=== PATIENT | female | born 1980 | race Two or more races ===

== ENCOUNTER → 2019-02-16 13:38 | Emergency (ER) | payer SELFPAY ==
[~2019-02-16 13:38] MED LIST: Ketorolac INJ* 30 MG/ML 1 ML VIAL IV PUSH ONE; NS 0.9% 1000 ML** 1,000 ML IV ONE
[2019-02-16 16:23] LABS: ABS Eosinophils 0.1 10^3/ul (0-0.6); ABS Monocytes 0.5 10^3/ul (0-0.8); ABS Neutrophils 5.2 10^3/ul (1.5-7.7); Hematocrit 36 % (35-47); Hemoglobin 11.3 g/dL (12.0-16.0); Lymphocyte % 25.8 %; Mean Corpuscular HGB Conc 32 g/dL (31-36); Mean Corpuscular Hemoglobin 26 pg (27-31); Mean Corpuscular Volume 82 fL (80-97); Mean Platelet Volume 8.4 fL (7.4-10.4); Platelet Count 255 10^3/uL (150-450); Red Blood Count 4.34 10^6 /uL (3.70-4.87); Red Cell Distribution Width 17 % (10-15); White Blood Count 7.9 10^3/uL (3.5-10.8)
[2019-02-16 16:26] LABS: INR 1.09 (0.82-1.09)
[2019-02-16 16:42] LABS: HCG Pregnancy < 0.60 mIU/mL
[2019-02-16 17:06] LABS: ALT 94 U/L (7-52); AST 62 U/L (13-39); Albumin 3.9 g/dL (3.2-5.2); Albumin/Globulin Ratio 1.1 (1-3); Alkaline Phosphatase 83 U/L (34-104); Anion Gap 6 mmol/L (2-11); BUN/Creatinine Ratio 14.7 (8-20); Blood Urea Nitrogen 10 mg/dL (6-24); CO2 Carbon Dioxide 25 mmol/L (22-32); Chloride 110 mmol/L (101-111); EGFR African American 117.8 (>60); EGFR Non-African American 97.4 (>60); Globulin 3.4 g/dL (2-4); Glucose 85 mg/dL (70-100); Potassium 3.9 mmol/L (3.5-5.0); Sodium 141 mmol/L (135-145); Total Protein 7.3 g/dL (6.4-8.9)
--- NOTE | 2019-02-16 17:06 | ED ---
GI/ HPI - HPI Summary HPI Summary: 38-year-old female presents with vaginal bleeding for the past month. She states she started her period on the 15th and has continued bleeding since. She states that she has been starting to pass blood clots. She states that she is currently on control that started a month ago. She has history or anemia and is on iron. she admits to crampy abd pain. denies any change of . She denies any weakness or feeling like she will pass out. She admits to constipation. She admits to some nausea. She has been using ibuprofen for pain. She denies any fevers. She states that she rolled her left ankle. She is pain into her left foot and medial aspect of left ankle. No numbness or tingling. cuff setter lockstitch was used for history. - History of Current Complaint Chief Complaint: EDVaginalBleeding Time Seen by Provider: 02/16/19 16:26 Stated Complaint: LOWER ABD PAIN PER PT Pain Intensity: 10 - Allergy/Home Medications Allergies/Adverse Reactions: Allergies Allergy/AdvReac Type Severity Reaction Status Date / Time No Known Allergies Allergy Verified 02/16/19 13:48 Home Medications: Home Medications Bisacodyl EC TAB* [Dulcolax EC TAB*] 5 mg PO DAILY PRN 02/16/19 [History Confirmed 02/16/19] Drospirenone/Estradiol [Angeliq] 1 tab PO DAILY 02/16/19 [History Confirmed 06/27] FLUoxetine CAP* [PROzac CAP*] 10 mg PO DAILY 02/16/19 [History Confirmed ] Ferrous Sulfate TAB* 325 mg PO DAILY 02/16/19 [History Confirmed 02/16/19] Levothyroxine TAB* [Synthroid TAB*] 50 mcg PO DAILY 02/16/19 [History Confirmed 02/16/19] Losartan TAB* [Cozaar TAB*] 50 mg PO DAILY 02/16/19 [History Confirmed 02/16/19] Melatonin 10 mg PO BEDTIME 02/16/19 [History Confirmed 02/16/19] Metformin ER (NF) 500 mg PO DAILY 02/16/19 [History Confirmed 02/16/19] clonazePAM TAB(*) [KlonoPIN TAB(*)] 2 mg PO BID MDD 2mg 02/16/19 [History Confirmed 02/16/19] PMH/Surg Hx/FS Hx/Imm Hx Endocrine/Hematology History: Reports: Hx Anemia GI History: Reports: Other GI Disorders - pcos Infectious Disease History: No Infectious Disease History: Denies: Traveled Outside the [place] in Last 30 Days - Family History Known Family History: Positive: Non-Contributory - Social History Alcohol Use: None Substance Use Type: Reports: None Smoking Status (MU): Never Smoked Tobacco Review of Systems Negative: Fever Negative: Chest Pain Negative: Shortness Of Breath Positive: Abdominal Pain Positive: Myalgia - left foot and ankle pain All Other Systems Reviewed And Are Negative: Yes Physical Exam Triage Information Reviewed: Yes Vital Signs On Initial Exam: Initial Vitals Temp Pulse Resp BP Pulse Ox 97.7 F 91 18 140/90 99 02/16/19 13:47 02/16/19 13:47 02/16/19 13:47 02/16/19 13:47 02/16/19 13:47 Vital Signs Reviewed: Yes Appearance: Positive: Well-Appearing Skin: Positive: Warm, Dry Head/Face: Positive: Normal Head/Face Inspection Eyes: Positive: Normal, Conjunctiva Clear ENT: Positive: Pharynx normal Respiratory/Lung Sounds: Positive: Clear to Auscultation, Breath Sounds Present Cardiovascular: Positive: Normal, RRR Abdomen Description: Positive: Soft, Other: - tenderness in lower abdomen Bowel Sounds: Positive: Present Musculoskeletal: Positive: Normal Neurological: Positive: Normal Psychiatric: Positive: Normal Diagnostics - Vital Signs Vital Signs Temp Pulse Resp BP Pulse Ox 02/16/19 16:12 97.2 F 76 18 132/82 100 02/16/19 13:47 97.7 F 91 18 140/90 99 - Laboratory Lab Results: Lab Results 02/16/19 02/16/19 02/16/19 Range/Units 16:09 16:09 16:09 WBC 7.9 (3.5-10.8) 10^3/uL RBC 4.34 (3.70-4.87) 10^6 /uL Hgb 11.3 L (12.0-16.0) g/dL Hct 36 (35-47) % MCV 82 (80-97) fL MCH 26 L (27-31) pg MCHC 32 (31-36) g/dL RDW 17 H (10-15) % Plt Count 255 (150-450) 10^3/uL MPV 8.4 (7.4-10.4) fL Neut % (Auto) 65.8 % Lymph % (Auto) 25.8 % [place] % (Auto) 6.8 % Eos % (Auto) 1.0 % Baso % (Auto) 0.6 % Absolute Neuts (auto) 5.2 (1.5-7.7) 10^3/ul Absolute Lymphs (auto) 2.0 (1.0-4.8) 10^3/ul Absolute Monos (auto) 0.5 (0-0.8) 10^3/ul Absolute Eos (auto) 0.1 (0-0.6) 10^3/ul Absolute Basos (auto) 0.0 (0-0.2) 10^3/ul Absolute Nucleated RBC 0.0 10^3/ul Nucleated RBC % 0.0 INR (Anticoag Therapy) 1.09 (0.82-1.09) Sodium Pending Potassium Pending Chloride Pending Carbon Dioxide Pending Anion Gap Pending BUN Pending Creatinine Pending Est GFR ( Amer) Pending Est GFR (Non-Af Amer) Pending BUN/Creatinine Ratio Pending Glucose Pending Calcium Pending Total Bilirubin Pending AST Pending ALT Pending Alkaline Phosphatase Pending Total Protein Pending Albumin Pending Globulin Pending Albumin/Globulin Ratio Pending Lipase Pending Beta HCG, Quant < 0.60 mIU/mL Result Diagrams: 02/16/19 16:09 02/16/19 16:09 Lab Statement: Any lab studies that have been ordered have been reviewed, and results considered in the medical decision making process. - Radiology foot, ankle Radiology Interpretation Completed By: Radiologist Summary of Radiographic Findings: IMPRESSION: SOFT TISSUE SWELLING, NO FRACTURE IS SEEN. - Ultrasound No standard instances Ultrasound Interpretation Completed By: Radiologist Summary of Ultrasound Findings: IMPRESSION: Sonographically normal uterus and ovaries. Re-Evaluation - Re-Evaluation First Eval Re-Evaluation Time: 20:53 GIGU Course/Dx - Course Course Of Treatment: 38-year-old female presents with vaginal bleeding for the past month. She states she started her period on the 15th and has continued bleeding since. She states that she has been starting to pass blood clots. She states that she is currently on control that started a month ago. She has history or anemia and is on iron. she admits to crampy abd pain. denies any change of . She denies any weakness or feeling like she will pass out. She admits to constipation. She admits to some nausea. She has been using ibuprofen for pain. She denies any fevers. She states that she rolled her left ankle. She is pain into her left foot and medial aspect of left ankle. No numbness or tingling. cuff setter lockstitch was used for history. on exam has suprapubic abd tenderness. wbc normal. hemoglobin is 11.3 which improved from prior. vitals stable. tenderness over left ankle. xray normal. ultrasound normal. will add on naproxen for dysmenorrhea. told follow up with ob to discuss control. told treat ankle with ice and elevation. patient understand and agrees with plan. - Diagnoses Differential Diagnoses - Female: Urinary Tract Infection, Other - dysfunctional uterine bleeding, fracture Provider Diagnoses: Left ankle pain, Dysfunctional uterine bleeding Discharge - Sign-Out/Discharge Documenting (check all that apply): Patient Departure Patient Received Moderate/Deep Sedation with Procedure: No - Discharge Plan Condition: Good Disposition: HOME Prescriptions: Naproxen TAB* [Naprosyn 250 mg TAB*] 500 mg PO Q12H PRN #28 tab PRN Reason: Pain Patient Education Materials: Dysfunctional Uterine Bleeding (ED), Ankle Sprain (ED) Print Language: MAORI Forms: *Work Release Referrals: Paulina Adair MD [Primary Care Provider] - Gasper London MD [Medical Doctor] - Additional Instructions: take naproxen twice a day until bleeding improves, take tyenlol as needed for break through pain follow up with dr london apply ice, elevate, and keep reinaldo on ankle Return to ED if develop any new or worsening symptoms - Billing Disposition and Condition Condition: GOOD Disposition: Home
[2019-02-16 20:00] LABS: Urine Appearance Cloudy; Urine Bacteria Absent (Absent); Urine Bilirubin Negative (Negative); Urine Blood 3+ (Negative); Urine Glucose Negative (Negative); Urine Ketones Negative (Negative); Urine Nitrite Negative (Negative); Urine Protein 2+(100 mg/dL) (Negative); Urine Red Blood Cell 3+(>10/hpf) (Absent); Urine Specific Gravity 1.031 (1.010-1.030); Urine Squamous Epithelial Cell Present (Absent); Urine Urobilinogen Negative (Negative); Urine White Blood Cell Trace(0-5/hpf) (Absent)
[2019-02-16 20:01] LABS: Urine Color Red
[2019-02-16 21:26] VITALS: BP 110/69
== END | disposition home or self-care (01) ==
LOC: ED 13:38
DX: N93.8 Other specified abnormal uterine and vaginal bleeding (principal); M25.572 Pain in left ankle and joints of left foot; D64.9 Anemia, unspecified; Z32.02 Encounter for pregnancy test, result negative; Z79.3 Long term (current) use of hormonal contraceptives
CPT/HCPCS: 36415; 76830; 80053; 81003; 81015; 83690; 84702; 85025; 85610; 86850; 86900; 86901; 87086; 96361; 96374; 96376; 99283; J1885